=== PATIENT | female | born 1980 | race Caucasian/White ===

== ENCOUNTER 2021-05-15 14:15 | Outpatient (CLI) | payer OTHER | END 2021-05-15 15:30 | disposition home or self-care (01) | LOC: LAB 14:15 | PROVIDERS: ATTEND Internal Medicine Hematology & Oncology | DX: D50.8 Other iron deficiency anemias (principal); I10 Essential (primary) hypertension; R74.02 Elevation of levels of lactic acid dehydrogenase [LDH]; K76.89 Other specified diseases of liver; J45.998 Other asthma; C92.10 Chronic myeloid leukemia, BCR/ABL-positive, not having achieved remission ==

== ENCOUNTER 2021-07-12 14:14 | Emergency (ER) | payer OTHER ==
[~2021-07-12] VITALS: Ht 152.4 cm; Wt 58.5 kg
[2021-07-12] MEDS ORDERED: SPRYCEL140 MG (14:50)
[2021-07-12] MEDS ORDERED: SITAVIG50 MG BC (14:50)
[2021-07-12] MEDS ORDERED: VITAMIN B125000 MCG (14:51)
[2021-07-12] MEDS ORDERED: PROTONIX40 M1 PO (14:51)
== END 2021-07-12 17:06 ==
LOC: ER 14:14
DX: H66.91 Otitis media, unspecified, right ear (principal)

== ENCOUNTER 2021-10-14 12:00 | Outpatient (CLI) | payer OTHER ==
[~2021-10-14 12:00] MED LIST: PROTONIX40 M1 PO; SITAVIG50 MG BC; SPRYCEL140 MG; VITAMIN B125000 MCG
== END 2021-10-14 12:01 | disposition home or self-care (01) ==
LOC: LAB 12:00
PROVIDERS: ATTEND Internal Medicine Hematology & Oncology
DX: I10 Essential (primary) hypertension (principal); J45.998 Other asthma; D50.8 Other iron deficiency anemias; R79.89 Other specified abnormal findings of blood chemistry; R74.02 Elevation of levels of lactic acid dehydrogenase [LDH]; K76.89 Other specified diseases of liver; C92.10 Chronic myeloid leukemia, BCR/ABL-positive, not having achieved remission

== ENCOUNTER → 2022-01-12 11:44 | Outpatient (CLI) | payer OTHER | END | disposition home or self-care (01) | LOC: LAB 11:44 | PROVIDERS: ATTEND Internal Medicine Hematology & Oncology | DX: D50.8 Other iron deficiency anemias (principal); R79.9 Abnormal finding of blood chemistry, unspecified; I10 Essential (primary) hypertension; R74.02 Elevation of levels of lactic acid dehydrogenase [LDH]; K76.89 Other specified diseases of liver; D51.1 Vitamin B12 deficiency anemia due to selective vitamin B12 malabsorption with proteinuria; D51.0 Vitamin B12 deficiency anemia due to intrinsic factor deficiency; D63.1 Anemia in chronic kidney disease; E03.8 Other specified hypothyroidism; E06.3 Autoimmune thyroiditis; C92.10 Chronic myeloid leukemia, BCR/ABL-positive, not having achieved remission; J45.998 Other asthma ==